=== PATIENT | male | born 1950 | race Caucasian/White ===

== ENCOUNTER 2019-09-23 12:12 | Inpatient (IN) | payer MEDICARE, BC ==
[~2019-09-23] VITALS: Ht 172.7 cm; Wt 77.3 kg
[2019-09-23 13:24] VITALS: BP 114/75; Ht 172.7 cm; Wt 77.3 kg
--- NOTE | 2019-09-23 15:45 | NUR ---
PT TAKEN TO PRE OP VIA BED. NO ACUTE DISTRESS NOTED.
[2019-09-23 17:39] VITALS: BP 137/66
[2019-09-23 20:00] VITALS: BP 119/73
--- NOTE | 2019-09-23 20:49 | MORECARE ---
CASE MANAGEMENT DISCHARGE SUMMARY PATIENT: SHADE CLEMONS UNIT: [id number] ADM DATE: 09/23/19 AGE: 69 : 49 SEX: M ROOM/BED: D.2234 AUTHOR: HUDSON CONNOLLY PHYSICIAN: REFERRING PHYSICIAN: SKY WESLEY MD DATE OF SERVICE: 09/23/19 Discharge Plan Patient Name: SHAED CLEMONS Facility: [facility]:[place] : 1950 Planned Disposition: Home Anticipated Discharge Date: Discharge Date: Expected LOS: Initial Reviewer: [email or web address] Initial Review Date: 09/23/2019 Generated: 09/23/19 9:48 pm Comments DCP- Discharge Planning Updated by [email or web address]: Rachael Hernandez on 09/23/19 7:[address] Patient Name: SHADE CLEMONS Admission Status: Urgent Accout number: [id number] Admission Date: 09-23-2019 : 1950 Admission Diagnosis: Attending: SKY WESLEY Current LOS: 1 Anticipated DC Date: Planned Disposition: Home Primary Insurance: MEDICARE A & B Discharge Planning Comments: CM met with patient to complete initial dc planning assessment. CM educated patient on the CM role and verbal consent given by patient to complete assessment. Patient lives at home with his Giselle. At discharge patient plans to return home and feels this is a safe discharge. CM discussed availability of home health, rehab services, and medical equipment. Patient denied known discharge needs at this time. CM will continue to follow and will assist as needed with dc plans/needs. Interstate Bus Driver: Rachael Hernandez DCPIA - Discharge Planning Initial Assessment Updated by [email or web address]: Rachael Hernandez on 09/23/19 8:43 pm * Is the patient Alert and Oriented? Yes * How many steps to enter\exit or inside your home? 15 * PCP * Pharmacy [facility] * Preadmission Environment Home with Family * ADLs Independent * Equipment None * List name and contact numbers for known caregivers / representatives who currently or will assist patient after discharge: GISELLE - -[phone] * Verbal permission to speak to the caregivers and representatives has been obtained from the patient. Yes * Community resources currently utilized None * Additional services required to return to the preadmission environment? No * Can the patient safely return to the preadmission environment? Yes * Has this patient been hospitalized within the prior 30 days at any hospital? No Patient Name: SHADE CLEMONS Page 19931 at 204 All edits/amendments must be made on the electronic document DICTATION DATE: 09/23/192047 MUD JACK NOZZLEMAN: CECILE 09/23/192047 RPT#: [id number] DC DATE: STATUS: ADM IN [facility] [address] [place] [address] END OF REPORT
[2019-09-24] VITALS: BP 132/71
[2019-09-24 04:00] VITALS: BP 128/72
--- NOTE | 2019-09-24 06:46 | NUR ---
REFUSED AM LABS
--- NOTE | 2019-09-24 08:00 | NUR ---
PATIENT STATED HE REFUSED BLOOD DRAWS SINCE HE WILL BE GOING HOME. I EXPLAINED TO HIM THAT IT WAS IMPORTANT TO KNOW HIS H/H, WBC, BUN, AND CR TO SEE WHETHER OR NOT DISCHARGE WILL BE POSSIBLE. HE VOICED HIS UNDERSTANDING AND I CALLED LAB TO TELL HIM THAT HE WOULD ALLOW US TO GET HIS LABS. CL IN REACH. NO FURTHER NEEDS AT THIS TIME. LUIS
[2019-09-24 08:24] VITALS: BP 121/78
[2019-09-24 08:57] LABS: ANION GAP 11.6 mmol/L (8-16); BASOPHILS 0.1 % (0-2); CALCIUM 8.3 mg/dL (8.5-10.1); CARBON DIOXIDE 24.2 mmol/L (21.0-32.0); CREATININE - SERUM 1.2 mg/dL (0.6-1.3); EOSINOPHILS 0.8 % (0-7); HEMATOCRIT 42.2 % (42.0-54.0); HEMOGLOBIN 13.8 g/dL (13.5-17.5); IMMATURE GRANULOCYTES 0.2 % (0-5); LYMPHOCYTES 16.1 % (15-50); MCH 30.5 pg (26.0-34.0); MCHC 32.7 g/dL (31.0-37.0); MCV 93.4 fL (80.0-100.0); MEAN PLATELET VOLUME 9.2 fL (7.4-10.4); MONOCYTES 10.9 % (2-11); NEUTROPHILS 71.9 % (40-80); PLATELET COUNT 133 10x3/uL (130-400); POTASSIUM - SERUM 3.8 mmol/L (3.5-5.1); RBC 4.52 10x6/uL (4.20-6.10); RDW 12.4 % (11.5-14.5); WBC 8.3 10x3/uL (4.8-10.8)
[2019-09-24] MEDS ORDERED: LEVOFLOXAC500 MG/100 IV (09:57)
[2019-09-24] MEDS ORDERED: CARDURA2 MG PO (09:58)
[2019-09-24] MEDS ORDERED: LEVOTHYROXINE100 MCG PO (09:58)
--- NOTE | 2019-09-24 10:00 | HP ---
PATIENT: SHADE CLEMONS MEDICAL RECORD: [id number] ACCOUNT: [id number] LOCATION:D.MS [id number] : [birth year] ADMISSION DATE: 09/23/19 PCP: SKY WESLEY MD HISTORY AND PHYSICAL EXAMINATION CHIEF COMPLAINT: Nausea, vomiting, abdominal pain. HISTORY OF PRESENT ILLNESS: The patient is a 69-year-old male with past history of kidney stones who said he had gone to [facility] on a mission trip, returning August 09 of this year. He had some nausea and abdominal pain and vomiting at that time with diarrhea and self-treated with Cipro. He was seen in the office at that time with a normal white count, normal renal function, creatinine of 1.2 and urine showed 25 red cells and white cells per high power field. His urine culture returned negative, thought due to his pretreatment with Cipro, so he finished 7 days. Repeat urine was clear, he resolved. He stated yesterday afternoon, he developed onset of nausea with intractable vomiting and some diarrhea and then was preceded by right lower quadrant pain that radiated into the right suprapubic area. He took a [place] and some Advil last night and the symptoms got better, but recurred this morning. He had watery diarrhea, but no melena, bright red blood per rectum or hematemesis. He denies fever. He denies recent exposure to COVID-19 patients. He was seen in the office today. His white count is now 14,000 with left shift. His urinalysis shows 25 white and red cells with bacteria and his creatinine was up to 1.7. Liver functions were normal. He is being admitted now after CT abdomen shows right ureteral stone, 3-mm with obstruction and 6-mm stone in the left with bilateral hydronephrosis. He denies any recent dysuria or nocturia and responds well to Cardura for his BPH. PAST MEDICAL HISTORY: Had ureteral stones with stent placement, retrograde in 2011, history of hyperthyroidism post I-131 therapy and resultant hypothyroidism, BPH, hyperlipidemia. PAST SURGICAL HISTORY: Cystoscopy with stent placement in 2011. FAMILY HISTORY: Father at 46 from acute [place]. Mother in her 90s with dementia, cancer and hypertension. 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 HOME MEDICATIONS: Levothyroxine 100 mcg p.o. every morning before a meal, Cardura 2 mg at bedtime. ALLERGIES: None mentioned. REVIEW OF SYSTEMS: GENERAL: Denies fevers, just has not felt well since last night. HEENT: No recent visual change, sinus congestion, or sore throat. RESPIRATORY: No SOB or cough. CARDIAC: No chest pain, claudication or edema. GASTROINTESTINAL: Nausea with intractable vomiting and some loose stool the last 18 hours. Right lower quadrant abdominal pain as mentioned and radiated to his right suprapubic area. GENITOURINARY: Denies dysuria. Has nocturia once nightly. MUSCULOSKELETAL: No arthralgias. HISTORY AND PHYSICAL [id number] SHADE CLEMONS NEUROLOGICAL: No history of stroke, TIA, vascular headaches, or seizures or memory loss. SKIN: No rash. PHYSICAL EXAMINATION: VITAL SIGNS: Height is 5 feet 7 inches, weight 175, blood pressure is 130/80. He is afebrile. GENERAL: Appears mildly fatigued, but no acute distress. HEENT: Normocephalic. Eyes are clear, nonicteric. Pupils reactive. Vision intact. Oropharynx unremarkable. NECK: No bruits or masses. CHEST: Clear. HEART: Regular without MGR. PMI appropriate. ABDOMEN: Soft with minimal tenderness in right lower quadrant and suprapubic. No rebound. No masses felt. No CVA tenderness. GENITOURINARY: Deferred. EXTREMITIES: No CC&E. INTEGUMENT: No rash, petechiae, itching or ecchymoses appreciated. NEUROLOGIC: Oriented to person, place, and time. Cranial nerves intact. Gait is normal. LABORATORY AND DIAGNOSTIC DATA: His white count is 14,000. BUN is 20, his creatinine is 1.7, up from 1.1. UA shows pyuria, hematuria. Liver functions are normal. White count is 14,[address] as above. ASSESSMENT: 1. Right ureteral and left ureteral calculi, symptomatic on the right with bilateral hydronephrosis, [id number]. 2. Benign prostatic hypertrophy. 3. Acute intravascular volume depletion, leukocytosis, recent foreign travel. PLAN: The patient will be held n.p.o., given IV fluid 2 liters wide open, then 150 an hour, morphine p.r.n. for pain. We will culture blood and urine. Dr. Hernandez from urology has been consulted. TRANSINT:[id number] Voice Confirmation ID: [id number] DOCUMENT ID: [id number] SKY WESLEY MD at 1000 CC: [id number] DICTATION DATE: 09/23/19 1320 CIVIL RIGHTS INVESTIGATOR: 09/23/19 1512 ADM IN [place] [id number] [place] [address]
[2019-09-24] MEDS ORDERED: FLOMAX0.4 MG PO (10:14)
[2019-09-24] MEDS ORDERED: HYDROCODON-ACE1 EAC7 PO (10:15)
--- NOTE | 2019-09-24 10:17 | NUR ---
IV PUMP BEEPING INFUSION COMPLETE. PT STATES HE IS DRINKING PLENTY OF WATER NOW. I ADDED MORE TIME BECAUSE INFUSION WAS NOT COMPLETE. READY TO DISCHARGE. CL IN REACH. TM
[2019-09-24] MEDS ORDERED: LEVOFLOXACIN500 MG PO (10:25)
--- NOTE | 2019-09-24 11:08 | NUR ---
IV THERAPY REMOVED FROM RIGHT FOREARM. DISCHARGE INSTRUCTIONS GIVEN. PATIENT VERBALIZED UNDERSTANDING. REFUSED WHEELCHAIR. SAID HE WOULD LET ME KNOW WHEN HE WALKS OUT.
--- NOTE | 2019-09-26 09:22 | MORECARE ---
CASE MANAGEMENT DISCHARGE SUMMARY PATIENT: SHADE CLEMONS UNIT: [id number] ADM DATE: 09/23/19 AGE: 69 : 49 SEX: M ROOM/BED: D.2234 AUTHOR: HUDSON CONNOLLY PHYSICIAN: REFERRING PHYSICIAN: SKY WESLEY MD DATE OF SERVICE: 09/26/19 Discharge Plan Patient Name: SHADE CLEMONS Facility: [facility]:[place] : 1950 Planned Disposition: Home Anticipated Discharge Date: Discharge Date: 09/24/2019 Expected LOS: Initial Reviewer: [email or web address] Initial Review Date: 09/23/2019 Generated: 09/26/19 10:22 am Comments DCP- Discharge Planning Updated by [email or web address]: Rachael Hernandez on 09/23/19 7:[address] Patient Name: SHADE CLEMONS Admission Status: Urgent Accout number: [id number] Admission Date: 09-23-2019 : 1950 Admission Diagnosis: Attending: SKY WESLEY Current LOS: 1 Anticipated DC Date: Planned Disposition: Home Primary Insurance: MEDICARE A & B Discharge Planning Comments: CM met with patient to complete initial dc planning assessment. CM educated patient on the CM role and verbal consent given by patient to complete assessment. Patient lives at home with his Giselle. At discharge patient plans to return home and feels this is a safe discharge. CM discussed availability of home health, rehab services, and medical equipment. Patient denied known discharge needs at this time. CM will continue to follow and will assist as needed with dc plans/needs. Research Fellow: Rachael Hernandez DCPIA - Discharge Planning Initial Assessment Updated by [id number]: Rachael Hernandez on 09/23/19 8:43 pm * Is the patient Alert and Oriented? Yes * How many steps to enter\exit or inside your home? 15 * PCP * Pharmacy [facility] * Preadmission Environment Home with Family * ADLs Independent * Equipment None * List name and contact numbers for known caregivers / representatives who currently or will assist patient after discharge: GISELLE - -[phone] * Verbal permission to speak to the caregivers and representatives has been obtained from the patient. Yes * Community resources currently utilized None * Additional services required to return to the preadmission environment? No * Can the patient safely return to the preadmission environment? Yes * Has this patient been hospitalized within the prior 30 days at any hospital? No Last DP export: 09/23/19 7:49 p Patient Name: SHADE CLEMONS Page 43142 at 0922 All edits/amendments must be made on the electronic document DICTATION DATE: 09/26/19921 PUBLIC AFFAIRS SPECIALIST: CECILE 09/26/19921 RPT#: [id number] DC DATE:09/24/19 STATUS: DIS IN [place] [address] [place] [address] END OF REPORT
--- NOTE | 2019-09-26 10:26 | OP ---
PATIENT NAME: SHADE CLEMONS MEDICAL RECORD: [id number] :[birth year] LOCATION:D.MS Aguiar2234 ADMISSION DATE:09/23/19 SURGEON: WADE BATISTA MD DATE OF OPERATION: 09/23/2019 SURGEON: Wade Batista MD ANESTHESIA: General anesthesia by Faizan Thomas CRNA DIAGNOSIS: Bilateral ureteral stones causing bilateral hydroureteronephrosis and acute renal failure. PROCEDURES: Cystoscopy, bilateral retrograde pyelograms, bilateral ureteroscopy, and stone extraction, bilateral ureteral stent insertion 6-Swazi x 24 cm with string on the right side, 6-Swazi x 26 cm with string on the left side. FINDINGS: Radiolucent stones. A 3 mm in the right distal ureter, 7 mm plus 3 mm in the left mid ureter. BLOOD LOSS: None. CLINICAL HISTORY: This is a 69-year-old male, who has a previous history of kidney stones. He returned from a mission trip to [facility] recently. He was complaining of right flank pain with nausea. He was found to have acute renal failure with a creatinine of 1.9 when he was admitted to hospital. CT scan shows bilateral hydroureteronephrosis with a 3-mm distal right ureteral stone and a left mid ureteral 7 mm stone. There also seemed to be a possible 12-mm stone in the proximal right ureter. Because of his acute renal failure and bilateral hydroureteronephrosis, this becomes a urological emergency. Therefore, we are proceeding with surgery to remove the stones and relieve his ureteral obstruction. He was already given Levaquin IV on the floor, we did not give him any further antibiotics in the OR. DESCRIPTION OF PROCEDURE: The patient was placed in supine position on the OR table and he was given induction of general anesthesia. He was then placed in the lithotomy position. We performed fluoroscopy, but we could not see any radiodense stones. A 21-Swazi cystoscope with 30-degree lens was used for visualization. There are no urethral strictures. Prostate shows mild obstructive lateral lobes, but no bladder neck or median lobe obstruction. There are single ureteral orifices on each side. There are no bladder tumors seen. The 5-Swazi open-ended ureteral catheter was inserted into the left ureteral orifice and diluted contrast was injected for retrograde pyelogram. This shows quite severe hydronephrosis starting from the mid ureter. Proximal to it is a tortuous and quite dilated ureter. I could not see the actual source of the obstruction, however. On the right side, there was hydroureteronephrosis down to the distal ureter. Again, the site of obstruction was not clear. He may have uric acid stones which show up on CT scan, but they do not show up on fluoroscopy and plain x-rays. On the right side, we inserted a Sensor wire up into the renal pelvis through the lumen of the open-ended ureteral catheter. The ureteral catheter was then removed. Over the wire, we inserted a 21-Swazi x 4-cm ureteral dilation balloon. The right ureteral orifice was dilated for a few seconds with 12 atmospheres of pressure. The balloon was then deflated and then the balloon was removed entirely. The cystoscope was then removed, leaving the Sensor wire in place. We followed along the Sensor wire with the rigid OPERATIVE REPORT [id number] SHADE CLEMONS ureteroscope. We identified the stone in the distal ureter. A 0 tip 3-Swazi basket was used to trap the stone. The stone was removed entirely. I looked again up to the UP junction on the right side and could see no further stones. The wire was then backloaded onto the cystoscope and the stent was placed on the wire. Once the stent was in correct position, the wire was withdrawn entirely. The distal end of the stent was pushed into the bladder using a pusher. The string is maintained on the distal end of the stent. It hangs out of the urethra. We duplicated the procedure exactly for the left side. On the left side, there was a lot of tissue edema, which was holding a very large stone in place. We managed to get the 0-tip 3-Swazi basket around the stone. The stone was removed entirely under direct vision. I then placed the ureteroscope back up and we found another smaller stone proximal to the big stone. The smaller stone was also removed. One final look with the ureteroscope revealed no further stones to be present up to the level of the left UP junction. The nephroscope was then removed and the stent was inserted over the wire as described earlier for the right side. At the end of the procedure, the bladder was emptied through the cystoscope sheath. Fluoroscopy revealed that both stents were in correct position. The scope was then removed entirely. The 2 strings were tied to each other and cut shorter. The patient can be discharged from hospital whenever his primary care physician feels that is worthy to do so. I will see him in followup next week to remove the stones. TRANSINT:[id number] Voice Confirmation ID: [id number] DOCUMENT ID: [id number] WADE BATISTA MD at 1026 CC: [id number] DICTATION DATE: 09/23/191711 SPECIAL EDUCATION MATH TEACHER: 09/23/192302 DIS IN 09/24/19 [place] [id number] [place] [id number]
--- NOTE | 2019-09-26 13:13 | DS ---
PATIENT:SHADE CLEMONS :[birth year] MEDICAL RECORD: [id number] DISCHARGE SUMMARY ADMISSION DATE: 09/23/19 DISCHARGE DATE: 09/24/19 DISCHARGE DIAGNOSES: Acute renal insufficiency due to bilateral ureteral stones with hydroureteronephrosis, nausea, vomiting, abdominal pain, leukocytosis, urinary tract infection. CONSULTANTS: Dr. Wade Hernandez, urology. PROCEDURES PERFORMED: Cystoscopy, bilateral retrograde pyelograms, bilateral ureteroscopy and stone extraction 3 mm on the right, 7 and 3 mm on the left with a 6-Welsh 24 and 26 cm strings right versus left. HOSPITAL COURSE: A 69-year-old male who presented to my office with acute onset of abdominal pain, right lower quadrant and suprapubic with nausea and vomiting. He had diarrhea previously after a trip to [facility]. He has self-treated for that. On evaluation in the office, he was toxic-appearing, tachycardic, mildly hypotensive, had moderate abdominal pain. His urine showed 25 red and white cells per high power field and his creatinine was up to 1.9. He was directly admitted to the hospital where CT scan of the abdomen was scheduled. He had some intractable vomiting. He stated no oral intake and less urine output. He was placed on IV fluids with 2 liters wide open, then [address] Hernandez saw the patient after CT scan did show evidence of bilateral renal calculi and hydronephrosis bilaterally with a 3 mm stone in the right mid ureter and 7 and 3 mm stones in the left ureter. He underwent the above procedure successfully, hydrated through the night and his nausea and vomiting has discontinued. His urine is still somewhat bloody, but he is voiding without difficulty and minimal dysuria. His white count has dropped from 14,000 to 8300 with normal shift, H&H is 13.8 and 42.2. His BUN and creatinine have dropped as well down to 14 and 1.2 with a previous creatinine was 1.9. Glucose is 103. Electrolytes are normal. He will be discharged in stable condition this morning to have followup with Dr. Hernandez in 1-2 weeks in his [place] office. DISCHARGE MEDICATIONS: Levaquin 500 mg p.o. daily for 6 days, Cardura 2 mg at bedtime, Tylenol p.r.n., levothyroxine 100 mcg 1 p.o. every morning 30 minutes before breakfast. ACTIVITY: Progress as tolerated. DIET: Low cholesterol. Return to clinic to see me in 1 week with UA. TRANSINT:[id number] Voice Confirmation ID: [id number] DOCUMENT ID: [id number] SKY WESLEY MD at 1313 CC: [id number] DICTATION DATE: 09/24/19 0957 FOOD CRITIC: 09/24/19 1748 DIS IN 09/24/19 [facility] [address] [place] [id number]
== END 2019-09-24 11:16 | disposition home or self-care (01) | DRG 660 ==
LOC: D.MS 12:12 → OBSVTIME 12:12 → D.MS 17:59
PROVIDERS: Urology; ADMIT Family Medicine; ATTEND Family Medicine
PROC: 0TC68ZZ Extirpation of Matter from Right Ureter, Via Natural or Artificial Opening Endoscopic (ICD-10-PCS; 2019-09-23)
PROC: BT141ZZ Fluoroscopy of Kidneys, Ureters and Bladder using Low Osmolar Contrast (ICD-10-PCS; principal; 2019-09-23 14:00)
PROC: 0T788DZ Dilation of Bilateral Ureters with Intraluminal Device, Via Natural or Artificial Opening Endoscopic (ICD-10-PCS; 2019-09-23 14:00)
PROC: 0TC78ZZ Extirpation of Matter from Left Ureter, Via Natural or Artificial Opening Endoscopic (ICD-10-PCS; 2019-09-23 14:00)
DX: N17.9 Acute kidney failure, unspecified (principal); N39.0 Urinary tract infection, site not specified; N13.2 Hydronephrosis with renal and ureteral calculous obstruction; E03.9 Hypothyroidism, unspecified